=== PATIENT | female | born 1990 | race Caucasian/White ===

== ENCOUNTER → 2016-03-27 | Outpatient (CLI) | payer BC | END | disposition home or self-care (01) | LOC: C.PAPS 09:36 | PROVIDERS: ATTEND Obstetrics & Gynecology | DX: Z01.419 Encounter for gynecological examination (general) (routine) without abnormal findings (principal) ==

== ENCOUNTER → 2017-04-03 | Outpatient (CLI) | payer BC ==
[~2017-04-03] MED LIST: GADAVIST IV PRN
--- NOTE | 2017-04-03 16:06 | DIAGNOSTIC IMAGING REPORT ---
BRAIN COMBO HISTORY: 26 years-old Female POLYNEUROPATHY acute pain and tingling of the lower extremities with associated headaches COMPARISON: None available TECHNIQUE: Multiplanar multisequence MRI the brain was obtained both with and without the use of 6 mL Gadavist FINDINGS: Large field view roving teller localizer images demonstrate no gross abnormality. There is no restricted diffusion to suggest acute infarction. The midline structures including the corpus callosum, brainstem, optic chiasm, infundibulum, and pituitary gland are unremarkable on the sagittal T1 series. Imaged upper cervical spine is unremarkable. The major flow voids at the level of the skull base appear patent. Mastoid air cells are clear. There is minimal mucosal thickening of the ethmoid air cells with rightward deviation and bowing of the nasal septum. The orbits appear to be within normal limits. Scalp, calvarium and soft tissues are within normal limits. There is no acute intracranial hemorrhage, midline shift, abnormal extra-axial collections, hydrocephalus or intracranial mass identified. There is no abnormal intra-axial or extra-axial enhancement identified. IMPRESSION: No acute intracranial abnormality. No abnormal enhancement. The above report was generated using voice recognition software. It may contain grammatical, syntax or spelling errors. Electronically signed by: James Rockwell M.D. 04/03/2017 4:04 PM Dictated Date/Time: 04/03/2017 3:59 PM
== END | disposition home or self-care (01) ==
LOC: C.MRI 15:16
PROVIDERS: ATTEND Family Medicine
DX: G62.9 Polyneuropathy, unspecified (principal)

== ENCOUNTER → 2017-04-28 | Outpatient (CLI) | payer BC ==
[2017-05-03 11:31] LABS: ANA SCREEN TC 249X NEGATIVE (NEGATIVE); ANTI-SS-A <1.0 NEG AI (<1.0 NEG); ANTI-SS-B <1.0 NEG AI (<1.0 NEG); VITAMIN B6** TC 926 23.8 ng/mL (2.1-21.7)
== END | disposition home or self-care (01) ==
LOC: C.LAB 08:46
PROVIDERS: ATTEND Psychiatry & Neurology Neurology
DX: R20.2 Paresthesia of skin (principal)